=== PATIENT | female | born 1980 | race Caucasian/White ===

== ENCOUNTER 2016-11-10 01:45 | Emergency (ER) | payer MEDICAID ==
[~2016-11-10] VITALS: Ht 172.7 cm; Wt 132.7 kg
[~2016-11-10 01:45] MED LIST: IBUP200C75 PO; OXYC-229 PO; OXYC-302 PO
[2016-11-10 01:48] VITALS: BP 113/81
== END 2016-11-10 04:47 | disposition home or self-care (01) ==
LOC: ED 04:20
DX: G44.219 Episodic tension-type headache, not intractable (principal)
CPT/HCPCS: 70450; 99284

== ENCOUNTER 2016-12-01 22:19 | Emergency (ER) | payer MEDICAID ==
[~2016-12-01] VITALS: Ht 172.7 cm; Wt 134.9 kg
[2016-12-01 22:21] VITALS: BP 134/83
[2016-12-01] MEDS ORDERED: KETOROLAC 30 MG/1 ML ONE (23:13)
[2016-12-01] MEDS ORDERED: KETOROLAC 30 MG/1 ML IM ONE (23:30)
== END 2016-12-02 00:47 | disposition home or self-care (01) ==
LOC: ED 12-02 00:25
DX: S46.811A Strain of other muscles, fascia and tendons at shoulder and upper arm level, right arm, initial encounter (principal); W19.XXXA Unspecified fall, initial encounter; Y93.89 Activity, other specified; Y99.8 Other external cause status; Y92.009 Unspecified place in unspecified non-institutional (private) residence as the place of occurrence of the external cause
CPT/HCPCS: 29105; 73030; 96372; 99284; J1885

== ENCOUNTER 2017-01-19 21:57 | Emergency (ER) | payer MEDICAID ==
[~2017-01-19] VITALS: Ht 172.7 cm; Wt 130.0 kg
[2017-01-19 22:00] VITALS: BP 132/82
[2017-01-19] MEDS ORDERED: IBUPROFEN 200 MG TABLET PO ONE (23:00)
[2017-01-19] MEDS ORDERED: HYDROcodone/APAP 5/325 TABLET PO ONE (23:00)
[2017-01-19] MEDS ORDERED: HYDROcodone/APAP 5/325 TABLET ONE (23:11)
[2017-01-19] MEDS ORDERED: IBUPROFEN 200 MG TABLET ONE (23:11)
== END 2017-01-19 23:56 | disposition home or self-care (01) ==
LOC: ED 23:01
DX: S83.91XA Sprain of unspecified site of right knee, initial encounter (principal); Z88.0 Allergy status to penicillin; Z88.1 Allergy status to other antibiotic agents; Z88.8 Allergy status to other drugs, medicaments and biological substances; Z88.2 Allergy status to sulfonamides; X50.9XXA Other and unspecified overexertion or strenuous movements or postures, initial encounter; Y93.89 Activity, other specified; Y99.8 Other external cause status; Y92.410 Unspecified street and highway as the place of occurrence of the external cause
CPT/HCPCS: 99284

== ENCOUNTER 2020-03-07 04:09 | Emergency (ER) | payer MEDICAID ==
[~2020-03-07] VITALS: Ht 172.7 cm; Wt 87.1 kg
[~2020-03-07 04:09] MED LIST changes: -OXYC-229 PO; +OXYC-307 PO
--- NOTE | 2020-03-07 04:30 | NUR ---
"I WAS THROWING UP AFTER DINNER, AND I WAS HALF ASLEEP AND ACCIDENTLY TOOK 6-7 OF ROBAXIN, NOW I'M JUST TIRED." TOOK THE ROBAXIN AT APPROX 0345. DENIES N/V CURRENTLY. DENIES SI. PT CONNECTED TO CARDIAC, BP AND O2 MONITORS. ERP TO BEDSIDE.
[2020-03-07] MEDS ORDERED: ONDANSETRON 2MG/ML, 2ML IVPush ONE (05:00)
[2020-03-07] MEDS ORDERED: SODIUM CHLORIDE 0.9% 1,000ML IVBOLUS ONE (05:00)
--- NOTE | 2020-03-07 05:26 | NUR ---
PT IN BED, NO SIGNS OF DISTRESS. WORKING TO OBTAIN IV ACCESS.
[2020-03-07 05:59] LABS: ALANINE AMINOTRANSFERASE 58 U/L (12-78); ALBUMIN 3.8 g/dL (3.4-5.0); ANION GAP 5 mmol/L (5-15); CALCIUM 8.9 mg/dL (8.5-10.1); CHLORIDE 115 mmol/L (98-107); CREATININE 0.52 mg/dL (0.55-1.02)
[2020-03-07 06:01] LABS: ALKALINE PHOSPHATASE 142 U/L (45-117); BILIRUBIN,TOTAL 0.4 mg/dL (0.2-1.0); TOTAL PROTEIN 7.3 g/dL (6.4-8.2)
[2020-03-07 06:02] VITALS: BP 120/80
--- NOTE | 2020-03-07 06:03 | NUR ---
PT LAYING IN BED, CONVERSING WITH BOYFRIEND. PT RESTING WITH EYES CLOSED. NO SIGNS OF DISTRESS. POSITIONED TO COMFORT.
--- NOTE | 2020-03-07 06:10 | NUR ---
PT AMBULATORY TO BATHROOM, STEADY GAIT.
[2020-03-07 06:40] LABS: BASOPHILS # (AUTO) 0.03 x10^3/uL (0-0.1); BASOPHILS % (AUTO) 0 % (0-1); EOSINOPHILS # (AUTO) 0.19 x10^3/uL (0-0.4); EOSINOPHILS % (AUTO) 2 % (1-7); LYMPHOCYTES # (AUTO) 2.05 x10^3/uL (1-3.4); LYMPHOCYTES % (AUTO) 27 % (22-44); MD NO; MEAN CORPUSCULAR HEMOGLOBIN 28.7 pg (27.0-34.8); MEAN CORPUSCULAR VOLUME 86.8 fL (80-100); MEAN PLATELET VOLUME 9.3 fL (7.4-10.4); MONOCYTES # (AUTO) 0.53 x10^3/uL (0.2-0.8); MONOCYTES % (AUTO) 7 % (2-9); NEUTROPHILS # (AUTO) 4.94 x10^3/uL (1.8-6.8); NEUTROPHILS % (AUTO) 64 % (42-75); PLATELET COUNT 260 x10^3/uL (130-400); RED BLOOD COUNT 4.68 x10^6/uL (3.82-5.3); RED CELL DISTRIBUTION WIDTH 15.2 % (9.6-15.2)
[2020-03-07 06:45] LABS: AMPHETAMINE SCREEN, URINE Positive (Negative); BARBITURATE SCREEN, URINE Negative (Negative); BENZODIAZEPINE SCREEN, URINE Negative (Negative); CANNABINOID SCREEN, URINE Positive (Negative); COCAINE SCREEN, URINE Negative (Negative); METHADONE SCREEN, URINE Negative (Negative); OPIATE SCREEN, URINE Negative (Negative)
== END 2020-03-07 06:53 | disposition home or self-care (01) ==
LOC: ED 06:06
DX: T42.8X1A Poisoning by antiparkinsonism drugs and other central muscle-tone depressants, accidental (unintentional), initial encounter (principal); R11.2 Nausea with vomiting, unspecified; F12.129 Cannabis abuse with intoxication, unspecified; F15.129 Other stimulant abuse with intoxication, unspecified; F13.129 Sedative, hypnotic or anxiolytic abuse with intoxication, unspecified; F17.210 Nicotine dependence, cigarettes, uncomplicated; Y92.89 Other specified places as the place of occurrence of the external cause; Z88.0 Allergy status to penicillin; Z88.2 Allergy status to sulfonamides; Z88.1 Allergy status to other antibiotic agents; Z88.8 Allergy status to other drugs, medicaments and biological substances
CPT/HCPCS: 36415; 80053; 80307; 85025; 96360; 99283; J7030

== ENCOUNTER 2020-03-11 03:48 | Emergency (ER) | payer MEDICAID ==
[~2020-03-11] VITALS: Ht 175.3 cm; Wt 72.0 kg
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
[2020-03-11] MEDS ORDERED: NALOXONE 0.4 MG/ML, 1ML ONE ×3 (04:16→07:27)
[2020-03-11] MEDS: NALOXONE 0.4 MG/ML, 1ML IVPush PRN ×2 (04:22→05:43)
[2020-03-11] MEDS ORDERED: SODIUM CHLORIDE 0.9% 1,000ML IVBOLUS ONE (04:30)
[2020-03-11 04:32] LABS: ALBUMIN 3.4 g/dL (3.4-5.0); ANION GAP 5 mmol/L (5-15); CALCIUM 7.8 mg/dL (8.5-10.1); CHLORIDE 112 mmol/L (98-107); CREATININE 0.68 mg/dL (0.55-1.02)
[2020-03-11 04:42] LABS: SALICYLATE LEVEL < 1.7 mg/dL (2.8-20.0)
[2020-03-11 04:50] LABS: AMPHETAMINE SCREEN, URINE Positive (Negative); BARBITURATE SCREEN, URINE Negative (Negative); BENZODIAZEPINE SCREEN, URINE Negative (Negative); CANNABINOID SCREEN, URINE Positive (Negative); COCAINE SCREEN, URINE Negative (Negative); METHADONE SCREEN, URINE Negative (Negative); OPIATE SCREEN, URINE Positive (Negative)
[2020-03-11 04:52] LABS: BASOPHILS # (AUTO) 0.03 x10^3/uL (0-0.1); BASOPHILS % (AUTO) 1 % (0-1); EOSINOPHILS # (AUTO) 0.28 x10^3/uL (0-0.4); EOSINOPHILS % (AUTO) 5 % (1-7); LYMPHOCYTES # (AUTO) 1.72 x10^3/uL (1-3.4); LYMPHOCYTES % (AUTO) 31 % (22-44); MD NO; MEAN CORPUSCULAR HEMOGLOBIN 28.3 pg (27.0-34.8); MEAN CORPUSCULAR HGB CONC 32.7 g/dL (32.4-35.8); MEAN CORPUSCULAR VOLUME 86.4 fL (80-100); MONOCYTES % (AUTO) 7 % (2-9); NEUTROPHILS # (AUTO) 3.18 x10^3/uL (1.8-6.8); NEUTROPHILS % (AUTO) 57 % (42-75); PLATELET COUNT 223 x10^3/uL (130-400); RED BLOOD COUNT 4.01 x10^6/uL (3.82-5.3); RED CELL DISTRIBUTION WIDTH 14.9 % (9.6-15.2)
--- NOTE | 2020-03-11 05:06 | NUR ---
Pt remains alert to painful stimuli. Bp improving. Md aware of situation.
--- NOTE | 2020-03-11 05:42 | NUR ---
Pt SpO2 decreasing to 88-90% and bp dropping. Given prn narcan and reacted immediately to drug admin.
--- NOTE | 2020-03-11 06:42 | NUR ---
Bedside report to Lopez ziegler.
--- NOTE | 2020-03-11 06:53 | NUR ---
Took report from Yoshi ziegler, assume care at this time. Pt calm sleeping. NAD.
[2020-03-11 09:56] VITALS: BP 124/54
== END 2020-03-11 09:58 | disposition home or self-care (01) ==
LOC: ED 05:22
DX: T43.621A Poisoning by amphetamines, accidental (unintentional), initial encounter (principal); T40.2X1A Poisoning by other opioids, accidental (unintentional), initial encounter; R41.82 Altered mental status, unspecified; R06.89 Other abnormalities of breathing; R94.31 Abnormal electrocardiogram [ECG] [EKG]; F17.200 Nicotine dependence, unspecified, uncomplicated; Y92.89 Other specified places as the place of occurrence of the external cause
CPT/HCPCS: 71045; 80048; 80307; 82040; 82962; 84703; 85025; 93005; 96361; 96374; 96376; 99285; J2310; J7030; 96375

== ENCOUNTER 2020-04-12 17:53 | Emergency (ER) | payer MEDICAID ==
[~2020-04-12] VITALS: Ht 172.7 cm; Wt 87.0 kg
[2020-04-12 17:55] VITALS: BP 133/71
--- NOTE | 2020-04-12 18:16 | NUR ---
PT REPORTS SHE IS ABOUT 4 WEEKS AND STARTED HAVING LARGE VAGINAL BLEEDING SINCE THIS MORNING. PLACED ON VITALS MONITORS, CALL LIGHT WITHIN REACH.
[2020-04-12] MEDS ORDERED: OXYcodone/APAP 10/325MG TABLET ONE (18:23)
[2020-04-12] MEDS ORDERED: ONDANSETRON ODT 4 MG ONE (18:23)
[2020-04-12] MEDS ORDERED: OXYcodone/APAP 10/325MG TABLET PO ONE (18:30)
[2020-04-12] MEDS ORDERED: ONDANSETRON ODT 4 MG PO ONE (18:30)
[2020-04-12 18:57] LABS: BASOPHILS # (AUTO) 0.03 x10^3/uL (0-0.1); BASOPHILS % (AUTO) 0 % (0-1); EOSINOPHILS # (AUTO) 0.17 x10^3/uL (0-0.4); EOSINOPHILS % (AUTO) 2 % (1-7); LYMPHOCYTES # (AUTO) 1.18 x10^3/uL (1-3.4); LYMPHOCYTES % (AUTO) 16 % (22-44); MD NO; MEAN CORPUSCULAR HEMOGLOBIN 29.3 pg (27.0-34.8); MEAN CORPUSCULAR HGB CONC 33.5 g/dL (32.4-35.8); MEAN CORPUSCULAR VOLUME 87.4 fL (80-100); MEAN PLATELET VOLUME 9.3 fL (7.4-10.4); MONOCYTES # (AUTO) 0.54 x10^3/uL (0.2-0.8); MONOCYTES % (AUTO) 7 % (2-9); NEUTROPHILS # (AUTO) 5.53 x10^3/uL (1.8-6.8); NEUTROPHILS % (AUTO) 74 % (42-75); PLATELET COUNT 274 x10^3/uL (130-400); RED BLOOD COUNT 4.03 x10^6/uL (3.82-5.3); RED CELL DISTRIBUTION WIDTH 14.8 % (9.6-15.2)
--- NOTE | 2020-04-12 18:57 | NUR ---
BREAK RN: REPORT RECEIVED FROM LISA MCARTHUR. PLAN OF CARE DISCUSSED.
[2020-04-12 19:05] LABS: ALBUMIN 3.6 g/dL (3.4-5.0); ANION GAP 7 mmol/L (5-15); CALCIUM 8.9 mg/dL (8.5-10.1); CHLORIDE 110 mmol/L (98-107)
--- NOTE | 2020-04-12 19:13 | NUR ---
REPORT TO LISA GRACIA
--- NOTE | 2020-04-12 19:21 | NUR ---
Pt to US
--- NOTE | 2020-04-12 20:25 | NUR ---
Patient/Caregiver given discharge instructions and they have confirmed that they understand the instructions. Patient ambulatory with steady gait.
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
== END 2020-04-12 20:44 | disposition home or self-care (01) ==
LOC: ED 20:25
DX: O03.9 Complete or unspecified spontaneous abortion without complication (principal)
CPT/HCPCS: 36415; 76801; 80048; 82040; 84702; 85025; 99284; Q0162

== ENCOUNTER 2020-06-11 21:11 | Emergency (ER) | payer MEDICAID ==
[~2020-06-11] VITALS: Ht 172.7 cm; Wt 88.0 kg
--- NOTE | 2020-06-11 21:50 | NUR ---
THIS IS A 39 YO FEMALE COMING IN WITH C/O VAGINAL BLEEDING, STARTED OFF WITH SPOTTING THIS AM, BECAME HEAVIER AND BRIGHT RED THROUGH DAY, SATURATING 1 PAD EVERY 1-2 HOURS, ALSO HAS SUPRAPUBIC CRAMPING. PATIENT RECENTLY HAS MISCARRIAGE ABOUT 2.5 MONTHS AGO. PATIENT IS [id number]. PATIENT DENIES SEEING CLOTS OR TISSUE PIECES. PATIENT LAST USED METH 3 DAYS AGO. DENIES ETOH USE OR CIGARETTES, BUT DOES USE VAPE PEN. MONITORING IN PLACE, VSS. NADN AT THIS TIME.
--- NOTE | 2020-06-11 22:06 | NUR ---
PATIENT TO ULTRASOUND
[2020-06-11 22:08] LABS: BASOPHILS % (AUTO) 1 % (0-1); EOSINOPHILS % (AUTO) 2 % (1-7); LYMPHOCYTES % (AUTO) 27 % (22-44); MEAN CORPUSCULAR HEMOGLOBIN 28.1 pg (27.0-34.8); MEAN CORPUSCULAR HGB CONC 32.5 g/dL (32.4-35.8); MEAN PLATELET VOLUME 8.6 fL (7.4-10.4); MONOCYTES % (AUTO) 7 % (2-9); NEUTROPHILS % (AUTO) 63 % (42-75); PLATELET COUNT 297 x10^3/uL (130-400); RED BLOOD COUNT 4.78 x10^6/uL (3.82-5.3); RED CELL DISTRIBUTION WIDTH 13.3 % (9.6-15.2)
[2020-06-11 22:19] LABS: ALBUMIN 3.8 g/dL (3.4-5.0); ANION GAP 5 mmol/L (5-15); CALCIUM 8.7 mg/dL (8.5-10.1); CHLORIDE 112 mmol/L (98-107); CREATININE 0.52 mg/dL (0.55-1.02)
[2020-06-11 22:22] LABS: MD NO
--- NOTE | 2020-06-11 23:16 | NUR ---
LIVIER POWERS NAD THIS RN IN ROOM FOR PELVIC EXAM. LIVIER POWERS PULLED OUT SOAKED TAMPON. PER PATIENT, "THE LAST TIME I USED ONE WAS DURING MY LAST PERIOD IN APRIL". ERP NOTIFIED
[2020-06-11 23:43] VITALS: BP 118/76
--- NOTE | 2020-06-11 23:43 | NUR ---
Patient given discharge instructions and they have confirmed that they understand the instructions. Patient ambulatory with steady gait.
== END 2020-06-11 22:56 | disposition home or self-care (01) ==
LOC: ED 21:56
DX: O46.91 Antepartum hemorrhage, unspecified, first trimester (principal); T19.2XXA Foreign body in vulva and vagina, initial encounter; Z3A.08 8 weeks gestation of pregnancy; X58.XXXA Exposure to other specified factors, initial encounter; Y93.89 Activity, other specified; Y92.89 Other specified places as the place of occurrence of the external cause; Y99.8 Other external cause status
CPT/HCPCS: 36415; 76801; 80048; 82040; 84702; 85025; 86901; 99284

== ENCOUNTER 2021-02-01 20:01 | Emergency (ER) | payer MEDICAID ==
[~2021-02-01] VITALS: Ht 172.7 cm; Wt 84.4 kg
[~2021-02-01 20:01] MED LIST changes: -OXYC-302 PO; -OXYC-307 PO; +OXYC-380 PO; +OXYC1TAB14 PO
[2021-02-01 20:07] VITALS: BP 147/78
--- NOTE | 2021-02-01 22:22 | NUR ---
patient signed AMA.
== END 2021-02-01 22:24 | disposition left against medical advice (07) ==
LOC: ED 22:18
DX: O26.891 Other specified pregnancy related conditions, first trimester (principal); Z3A.01 Less than 8 weeks gestation of pregnancy; Z53.29 Procedure and treatment not carried out because of patient's decision for other reasons
CPT/HCPCS: 99281

== ENCOUNTER 2021-04-09 05:43 | Emergency (ER) | payer MEDICAID ==
[~2021-04-09 05:43] MED LIST changes: -OXYC-380 PO; +OXYC-501 PO; +OXYC1TAB12 PO; -OXYC1TAB14 PO
--- NOTE | 2021-04-09 07:46 | NUR ---
patient to room from lobby
--- NOTE | 2021-04-09 08:00 | NUR ---
PT HAS CO VAG BLEEDING, MISCARRIAGE 2 MONTHS AGO. MODERATE BLEEDING. LABS IN PROCESS
[2021-04-09 08:46] LABS: BASOPHILS % (AUTO) 1 % (0-1); EOSINOPHILS % (AUTO) 1 % (1-7); LYMPHOCYTES % (AUTO) 23 % (22-44); MEAN CORPUSCULAR HEMOGLOBIN 28.3 pg (27.0-34.8); MEAN CORPUSCULAR HGB CONC 33.5 g/dL (32.4-35.8); MEAN PLATELET VOLUME 8.2 fL (7.4-10.4); MONOCYTES % (AUTO) 6 % (2-9); NEUTROPHILS % (AUTO) 69 % (42-75); PLATELET COUNT 409 x10^3/uL (130-400); RED BLOOD COUNT 4.23 x10^6/uL (3.82-5.3); RED CELL DISTRIBUTION WIDTH 15.7 % (9.6-15.2)
--- NOTE | 2021-04-09 08:55 | NUR ---
PT TO IMAGING
[2021-04-09 08:59] LABS: ALANINE AMINOTRANSFERASE 397 U/L (12-78); ALBUMIN 3.1 g/dL (3.4-5.0); ANION GAP 5 mmol/L (5-15); CALCIUM 8.6 mg/dL (8.5-10.1); CHLORIDE 107 mmol/L (98-107)
[2021-04-09 09:03] LABS: CREATININE 0.47 mg/dL (0.55-1.02)
[2021-04-09 09:04] LABS: ALKALINE PHOSPHATASE 413 U/L (45-117); BILIRUBIN,TOTAL 0.7 mg/dL (0.2-1.0); TOTAL PROTEIN 6.9 g/dL (6.4-8.2)
[2021-04-09 09:29] LABS: MICROSCOPIC INDICATED
[2021-04-09] MEDS ORDERED: KETOROLAC 30 MG/1 ML ONE (10:17)
[2021-04-09 10:19] VITALS: BP 113/83
[2021-04-09] MEDS ORDERED: MISOPROSTOL 100 MCG TABLET PO ONE (10:30)
[2021-04-09] MEDS ORDERED: KETOROLAC 30 MG/1 ML IM ONE (10:30)
--- NOTE | 2021-04-09 10:52 | NUR ---
PT RESTING, EDUCATED ABOUT MEDS, CYTOTEC. MAY EXPERIENCE CRAMPING AND INCREASED BLEEDING. VSS.
--- NOTE | 2021-04-09 11:25 | NUR ---
Patient Given discharge instructions and they have confirmed that they understand the instructions. Patient ambulatory with steady gait.
== END 2021-04-09 11:27 ==
LOC: ED 06:46
DX: O20.9 Hemorrhage in early pregnancy, unspecified (principal); Z3A.13 13 weeks gestation of pregnancy
CPT/HCPCS: 36415; 76830; 80053; 81001; 84703; 85025; 86901; 87086; 96372; 99284; J1885